=== PATIENT | female | born 1995 | race Caucasian/White ===

== ENCOUNTER 2020-03-15 02:08 | Emergency (ER) | payer OTHER ==
[~2020-03-15] VITALS: Ht 182.9 cm; Wt 125.9 kg
[~2020-03-15 02:08] MED LIST: NOCURR
[2020-03-15] MEDS ORDERED: MACR100 PO (02:19)
[2020-03-15] MEDS ORDERED: ACETAMINOPHEN 325 MG TABLET PO ONE (02:45)
[2020-03-15] MEDS ORDERED: SODIUM CHLORIDE 0.9% 1,000 ML IV ONE (02:45)
[2020-03-15 03:05] LABS: APPEARANCE,URINE CLOUDY (CLEAR); BILIRUBIN,URINE NEGATIVE (NEGATIVE); GLUCOSE, URINE (UA) NEGATIVE (NEGATIVE); KETONES,URINE NEGATIVE (NEGATIVE); LEUKOCYTE ESTERASE ,URINE SMALL (NEGATIVE); NITRATE,URINE NEGATIVE (NEGATIVE); OCCULT BLOOD,URINE MODERATE (NEGATIVE); PH,URINE 5.5 (5.0-8.0); PROTEIN,URINE NEGATIVE (NEGATIVE); UROBILINOGEN,URINE 0.2 mg/dL (<=1.0)
[2020-03-15 03:10] LABS: BASOPHILS % (AUTO) 0.3 % (0.0-2.0); HEMATOCRIT 35.1 % (36-46); HEMOGLOBIN 11.3 g/dL (12.0-16.0); LYMPHOCYTES # (AUTO) 1.2 K/uL (1.0-4.8); MEAN CORPUSCULAR HEMOGLOBIN 26.7 pg (26.0-34.0); MEAN CORPUSCULAR HGB CONC 32.2 G/dL (31.0-37.0); MEAN CORPUSCULAR VOLUME 83 fL (80-100); MONOCYTES # (AUTO) 0.8 K/uL (0.1-1.0); MONOCYTES % (AUTO) 9.7 % (2.0-9.0); NEUTROPHILS # (AUTO) 6.4 K/uL (1.8-7.7); PLATELET COUNT (AUTO) 203 K/uL (150-450); RED BLOOD CELL COUNT(AUTO) 4.24 MIL/uL (4.00-5.20); RED CELL DISTRIBUTION WIDTH 15.2 % (11.5-14.5)
[2020-03-15 03:15] LABS: ANION GAP 13 mmol/L (8-16); CALCIUM, TOTAL 8.5 mg/dL (8.8-10.5); CARBON DIOXIDE 25 mmol/L (22-29); CHLORIDE 100 mmol/L (98-107); CREATININE 0.95 mg/dL (0.60-1.30); GLOMERULAR FILTR. RATE CALC > 60 mL/min (>60); GLUCOSE,RANDOM 141 mg/dL (70-110); POTASSIUM 3.2 mmol/L (3.5-5.1); SODIUM SERUM 138 mmol/L (136-145); UREA NITROGEN, BLOOD 6 mg/dL (7-18)
[2020-03-15 03:18] LABS: BACTERIA,URINE Moderate /HPF (None Seen); SQUAMOUS EPITHELIAL CELL,UR Moderate /LPF (None Seen)
[2020-03-15 03:20] LABS: ALANINE AMINOTRANSFERASE 29 U/L (12-78); ALKALINE PHOSPHATASE 65 U/L (46-116); ASPARTATE AMINOTRANSFERASE 16 U/L (15-37); BILIRUBIN,TOTAL 0.2 mg/dL (0.1-1.0)
[2020-03-15] MEDS ORDERED: POTASSIUM CHLORIDE 20 MEQ ER TABLET PO ONE (03:45)
[2020-03-15 04:00] VITALS: BP 146/67
== END 2020-03-15 04:16 | disposition home or self-care (01) ==
LOC: EMS 02:08
DX: N39.0 Urinary tract infection, site not specified (principal); B34.9 Viral infection, unspecified; F17.210 Nicotine dependence, cigarettes, uncomplicated; R11.2 Nausea with vomiting, unspecified; Z20.828 Contact with and (suspected) exposure to other viral communicable diseases
CPT/HCPCS: 36415; 80053; 81001; 84703; 85025; 87086; 87426; 96360; 99283; J7030